=== PATIENT | female | born 1970 | race Caucasian/White ===

== ENCOUNTER → 2022-06-01 | Outpatient (CLI) | payer BC | LOC: WCC 09:00 | PROVIDERS: ATTEND Internal Medicine Infectious Disease | DX: S31.829A Unspecified open wound of left buttock, initial encounter (principal); S71.002A Unspecified open wound, left hip, initial encounter; C50.919 Malignant neoplasm of unspecified site of unspecified female breast; C73 Malignant neoplasm of thyroid gland; L08.89 Other specified local infections of the skin and subcutaneous tissue; S70.222A Blister (nonthermal), left hip, initial encounter; R23.9 Unspecified skin changes; M32.10 Systemic lupus erythematosus, organ or system involvement unspecified; R00.0 Tachycardia, unspecified; E03.8 Other specified hypothyroidism; F31.9 Bipolar disorder, unspecified ==

== ENCOUNTER → 2022-06-08 | Outpatient (CLI) | payer BC | LOC: WCC 10:24 | PROVIDERS: ATTEND Internal Medicine Infectious Disease | DX: S31.829A Unspecified open wound of left buttock, initial encounter (principal); L08.89 Other specified local infections of the skin and subcutaneous tissue; S70.222A Blister (nonthermal), left hip, initial encounter; R23.9 Unspecified skin changes; R00.0 Tachycardia, unspecified; M32.10 Systemic lupus erythematosus, organ or system involvement unspecified; C50.919 Malignant neoplasm of unspecified site of unspecified female breast; C73 Malignant neoplasm of thyroid gland; E03.8 Other specified hypothyroidism; F31.9 Bipolar disorder, unspecified ==

== ENCOUNTER → 2022-06-15 | Outpatient (CLI) | payer BC | LOC: WCC 11:37 | PROVIDERS: ATTEND Internal Medicine Infectious Disease | DX: S31.829A Unspecified open wound of left buttock, initial encounter (principal); S71.002A Unspecified open wound, left hip, initial encounter; L08.89 Other specified local infections of the skin and subcutaneous tissue; S70.222A Blister (nonthermal), left hip, initial encounter; R23.9 Unspecified skin changes; C50.919 Malignant neoplasm of unspecified site of unspecified female breast; C73 Malignant neoplasm of thyroid gland; R00.0 Tachycardia, unspecified; M32.10 Systemic lupus erythematosus, organ or system involvement unspecified; E03.8 Other specified hypothyroidism; F31.9 Bipolar disorder, unspecified ==

== ENCOUNTER → 2022-06-19 | Outpatient (CLI) | payer BC | LOC: WCC 14:30 | PROVIDERS: ATTEND Internal Medicine Infectious Disease | DX: S71.002A Unspecified open wound, left hip, initial encounter (principal); S31.829A Unspecified open wound of left buttock, initial encounter; L08.9 Local infection of the skin and subcutaneous tissue, unspecified; S70.222A Blister (nonthermal), left hip, initial encounter; R23.9 Unspecified skin changes; C50.919 Malignant neoplasm of unspecified site of unspecified female breast; C73 Malignant neoplasm of thyroid gland; R00.0 Tachycardia, unspecified; M32.10 Systemic lupus erythematosus, organ or system involvement unspecified; F31.9 Bipolar disorder, unspecified; E03.8 Other specified hypothyroidism ==

== ENCOUNTER → 2022-06-25 | Outpatient (CLI) | payer BC ==
[~2022-06-25] MED LIST: CLONAZEPAM1 MG PO; LAMICTAL100 MG PO; LINZESS290 MCG; LUNESTA3 MG; MIRAPEX1 MG PO; NUCYNTA75 MG; SEROQUEL100 MG PO; SYNTHROID125 MCG PO
== END ==
LOC: WCC 10:37
PROVIDERS: ATTEND Plastic Surgery
DX: S31.829A Unspecified open wound of left buttock, initial encounter (principal); S71.002A Unspecified open wound, left hip, initial encounter; C50.919 Malignant neoplasm of unspecified site of unspecified female breast; C73 Malignant neoplasm of thyroid gland; L08.89 Other specified local infections of the skin and subcutaneous tissue; S70.222A Blister (nonthermal), left hip, initial encounter; R23.9 Unspecified skin changes; R00.0 Tachycardia, unspecified; M32.10 Systemic lupus erythematosus, organ or system involvement unspecified; E03.8 Other specified hypothyroidism; F31.9 Bipolar disorder, unspecified

== ENCOUNTER → 2022-06-28 | Day surgery (SDC) | payer BC ==
[2022-06-26 16:28] LABS: BASOPHILS % 0.3 % (0.0-1.0); EOSINOPHILS # (AUTO) 0.1 (0.0-0.4); EOSINOPHILS % 1.5 % (0.0-6.0); HEMATOCRIT 41.5 % (34.2-44.1); HEMOGLOBIN 13.6 g/dL (12.0-16.0); LYMPHOCYTES # (AUTO) 1.6 (1.0-3.2); LYMPHOCYTES % 26.1 % (18.0-39.1); MEAN CORPUSCULAR HEMOGLOBIN 28.2 pg (28-32); MEAN CORPUSCULAR HGB CONC 32.8 g/dL (31-35); MEAN CORPUSCULAR VOLUME 85.9 fL (81-99); MONOCYTES # (AUTO) 0.5 (0.2-0.8); MONOCYTES % 8.2 % (4.4-11.3); NEUTROPHILS % 63.7 % (38.7-80.0); PLATELET COUNT 351 x10e3/uL (140-360); RED BLOOD COUNT 4.83 x10e6/uL (3.6-5.1); RED CELL DISTRIBUTION WIDTH 12.9 % (11.7-14.4)
[~2022-06-28] MED LIST changes: +DEXAMETHASONE SOD PHOS INJ 4 MG/ML SDV ONE; +FENTANYL CITRATE/PF 100MCG/2 ML INJ ONE; +HEPARIN 500 UNITS/5ML MDV INJ ONE; +HYDROMORPHONE 1MG/1ML INJ ONE; +KETOROLAC TROMETHAMINE 30 MG/ML VIAL ONE; +LIDOCAINE 1% W/EPINEPHRINE 20 ML VIAL ONE; +LIDOCAINE HCL 2% LOCAL INJ 5 ML SDV VIAL INJ ONE; +METOCLOPRAMIDE HCL 10 MG/2ML VIAL ONE; +MIDAZOLAM HCL 2 MG/2 ML VIAL ONE; +ONDANSETRON HCL INJ 2MG/ML 2ML 2 MG/ML VIAL ONE; +POVIDONE IODINE 0.05% 0.05 % ML PO ONE; +PROPOFOL IV EMULSION 10 MG/ML 20 ML VIAL ONE; +SEVOFLURANE INHAL SOLN 250 ML PEN BTL ONE
[2022-06-28 08:00] VITALS: BP 144/93
== END | disposition home or self-care (01) ==
LOC: OR 05:53
PROVIDERS: ATTEND Plastic Surgery
DX: T24.312A Burn of third degree of left thigh, initial encounter (principal); S71.102A Unspecified open wound, left thigh, initial encounter; G47.33 Obstructive sleep apnea (adult) (pediatric); E03.9 Hypothyroidism, unspecified; M06.9 Rheumatoid arthritis, unspecified; M19.90 Unspecified osteoarthritis, unspecified site; M54.9 Dorsalgia, unspecified; M54.2 Cervicalgia; K44.9 Diaphragmatic hernia without obstruction or gangrene; K57.90 Diverticulosis of intestine, part unspecified, without perforation or abscess without bleeding; N20.0 Calculus of kidney; F31.9 Bipolar disorder, unspecified; F41.9 Anxiety disorder, unspecified; X58.XXXA Exposure to other specified factors, initial encounter; Z88.6 Allergy status to analgesic agent; Z88.1 Allergy status to other antibiotic agents; Z88.0 Allergy status to penicillin; Z88.2 Allergy status to sulfonamides; Z88.8 Allergy status to other drugs, medicaments and biological substances; Z01.812 Encounter for preprocedural laboratory examination; Z20.822 Contact with and (suspected) exposure to COVID-19; Z79.899 Other long term (current) drug therapy
CPT/HCPCS: 0223U; 11043; 11046 ×3; 36415 ×2; 85025; 97606; 99251; J1100; J1170; J1885; J2001; J2250; J2405; J2704; J3010; J2765

== ENCOUNTER → 2022-07-03 | Outpatient (CLI) | payer BC ==
[~2022-07-03] MED LIST changes: -DEXAMETHASONE SOD PHOS INJ 4 MG/ML SDV ONE; -FENTANYL CITRATE/PF 100MCG/2 ML INJ ONE; -HEPARIN 500 UNITS/5ML MDV INJ ONE; -HYDROMORPHONE 1MG/1ML INJ ONE; -KETOROLAC TROMETHAMINE 30 MG/ML VIAL ONE; -LIDOCAINE 1% W/EPINEPHRINE 20 ML VIAL ONE; -LIDOCAINE HCL 2% LOCAL INJ 5 ML SDV VIAL INJ ONE; -METOCLOPRAMIDE HCL 10 MG/2ML VIAL ONE; -MIDAZOLAM HCL 2 MG/2 ML VIAL ONE; -ONDANSETRON HCL INJ 2MG/ML 2ML 2 MG/ML VIAL ONE; -POVIDONE IODINE 0.05% 0.05 % ML PO ONE; -PROPOFOL IV EMULSION 10 MG/ML 20 ML VIAL ONE; -SEVOFLURANE INHAL SOLN 250 ML PEN BTL ONE
== END ==
LOC: WCC 15:10
PROVIDERS: ATTEND Internal Medicine Infectious Disease
DX: S71.002A Unspecified open wound, left hip, initial encounter (principal); S31.829A Unspecified open wound of left buttock, initial encounter; L08.9 Local infection of the skin and subcutaneous tissue, unspecified; S70.222A Blister (nonthermal), left hip, initial encounter; R60.0 Localized edema; R23.9 Unspecified skin changes; C50.919 Malignant neoplasm of unspecified site of unspecified female breast; C73 Malignant neoplasm of thyroid gland; M32.10 Systemic lupus erythematosus, organ or system involvement unspecified; E03.8 Other specified hypothyroidism; F31.9 Bipolar disorder, unspecified

== ENCOUNTER → 2022-07-06 | Outpatient (CLI) | payer BC ==
[~2022-07-06] MED LIST changes: +TRINATAL RX 11 EACH
== END ==
LOC: WCC 14:57
PROVIDERS: ATTEND Internal Medicine Infectious Disease
DX: S71.002A Unspecified open wound, left hip, initial encounter (principal); S31.829A Unspecified open wound of left buttock, initial encounter; L08.9 Local infection of the skin and subcutaneous tissue, unspecified; S70.222A Blister (nonthermal), left hip, initial encounter; R23.9 Unspecified skin changes; C73 Malignant neoplasm of thyroid gland; C50.919 Malignant neoplasm of unspecified site of unspecified female breast; M32.10 Systemic lupus erythematosus, organ or system involvement unspecified; R00.0 Tachycardia, unspecified; E03.8 Other specified hypothyroidism; F31.9 Bipolar disorder, unspecified

== ENCOUNTER → 2022-07-09 | Outpatient (CLI) | payer BC | LOC: WCC 13:42 | PROVIDERS: ATTEND Internal Medicine Infectious Disease | DX: S31.829A Unspecified open wound of left buttock, initial encounter (principal); S71.002A Unspecified open wound, left hip, initial encounter; R23.9 Unspecified skin changes; S70.222A Blister (nonthermal), left hip, initial encounter; L08.89 Other specified local infections of the skin and subcutaneous tissue; C50.919 Malignant neoplasm of unspecified site of unspecified female breast; C73 Malignant neoplasm of thyroid gland; R00.0 Tachycardia, unspecified; M32.10 Systemic lupus erythematosus, organ or system involvement unspecified; E03.8 Other specified hypothyroidism; F31.9 Bipolar disorder, unspecified ==

== ENCOUNTER → 2022-07-12 | Day surgery (SDC) | payer BC ==
[~2022-07-12] MED LIST changes: +CLINDAMYCIN 600MG / 50ML 50 ML IV ONE; +DEXAMETHASONE SOD PHOS INJ 4 MG/ML SDV ONE; +FENTANYL CITRATE/PF 100MCG/2 ML INJ ONE; +HEPARIN 500 UNITS/5ML MDV INJ ONE; +HYDROCODONE/APAP 10MG-325MG TAB ONE; +HYDROMORPHONE 1MG/1ML INJ ONE; +LIDOCAINE HCL 2% LOCAL INJ 5 ML SDV VIAL INJ ONE; +MIDAZOLAM HCL 2 MG/2 ML VIAL ONE; +ONDANSETRON HCL INJ 2MG/ML 2ML 2 MG/ML VIAL ONE; +POVIDONE IODINE 0.05% 0.05 % ML PO ONE; +PROPOFOL IV EMULSION 10 MG/ML 20 ML VIAL ONE; +SEVOFLURANE INHAL SOLN 250 ML PEN BTL ONE
[2022-07-12 09:30] VITALS: BP 132/72
== END | disposition home or self-care (01) ==
LOC: OR 05:30
PROVIDERS: ATTEND Plastic Surgery
DX: T24.312A Burn of third degree of left thigh, initial encounter (principal); G47.33 Obstructive sleep apnea (adult) (pediatric); E03.9 Hypothyroidism, unspecified; M32.9 Systemic lupus erythematosus, unspecified; K85.90 Acute pancreatitis without necrosis or infection, unspecified; N20.0 Calculus of kidney; F41.9 Anxiety disorder, unspecified; F31.9 Bipolar disorder, unspecified; X08.8XXA Exposure to other specified smoke, fire and flames, initial encounter; Z88.6 Allergy status to analgesic agent; Z88.1 Allergy status to other antibiotic agents; Z88.2 Allergy status to sulfonamides; Z88.0 Allergy status to penicillin; Z01.812 Encounter for preprocedural laboratory examination; Z01.818 Encounter for other preprocedural examination; Z20.822 Contact with and (suspected) exposure to COVID-19; Z79.899 Other long term (current) drug therapy; Z85.850 Personal history of malignant neoplasm of thyroid; Z87.01 Personal history of pneumonia (recurrent); Z86.711 Personal history of pulmonary embolism
CPT/HCPCS: 0223U; 15002; 15100; 36415; 71046; J1100; J1170; J2001; J2250; J2405; J2704; J3010

== ENCOUNTER → 2022-07-16 | Outpatient (CLI) | payer BC ==
[~2022-07-16] MED LIST changes: -CLINDAMYCIN 600MG / 50ML 50 ML IV ONE; -DEXAMETHASONE SOD PHOS INJ 4 MG/ML SDV ONE; -FENTANYL CITRATE/PF 100MCG/2 ML INJ ONE; -HEPARIN 500 UNITS/5ML MDV INJ ONE; -HYDROCODONE/APAP 10MG-325MG TAB ONE; -HYDROMORPHONE 1MG/1ML INJ ONE; -LIDOCAINE HCL 2% LOCAL INJ 5 ML SDV VIAL INJ ONE; -MIDAZOLAM HCL 2 MG/2 ML VIAL ONE; -ONDANSETRON HCL INJ 2MG/ML 2ML 2 MG/ML VIAL ONE; -POVIDONE IODINE 0.05% 0.05 % ML PO ONE; -PROPOFOL IV EMULSION 10 MG/ML 20 ML VIAL ONE; -SEVOFLURANE INHAL SOLN 250 ML PEN BTL ONE
== END ==
LOC: WCC 14:38
PROVIDERS: ATTEND Internal Medicine Infectious Disease
DX: T81.89XA Other complications of procedures, not elsewhere classified, initial encounter (principal); T86.828 Other complications of skin graft (allograft) (autograft); S71.002A Unspecified open wound, left hip, initial encounter; S31.829A Unspecified open wound of left buttock, initial encounter; L08.9 Local infection of the skin and subcutaneous tissue, unspecified; S70.222A Blister (nonthermal), left hip, initial encounter; R23.9 Unspecified skin changes; C73 Malignant neoplasm of thyroid gland; C50.919 Malignant neoplasm of unspecified site of unspecified female breast; Y83.8 Other surgical procedures as the cause of abnormal reaction of the patient, or of later complication, without mention of misadventure at the time of the procedure; R00.0 Tachycardia, unspecified; M32.10 Systemic lupus erythematosus, organ or system involvement unspecified; E03.8 Other specified hypothyroidism; F31.9 Bipolar disorder, unspecified
CPT/HCPCS: 97605; 99251

== ENCOUNTER → 2022-07-23 | Outpatient (CLI) | payer BC | LOC: WCC 12:58 | PROVIDERS: ATTEND Internal Medicine Infectious Disease | DX: T81.89XA Other complications of procedures, not elsewhere classified, initial encounter (principal); T86.828 Other complications of skin graft (allograft) (autograft); Y83.8 Other surgical procedures as the cause of abnormal reaction of the patient, or of later complication, without mention of misadventure at the time of the procedure; S31.829A Unspecified open wound of left buttock, initial encounter; R23.9 Unspecified skin changes; S70.222A Blister (nonthermal), left hip, initial encounter; L08.89 Other specified local infections of the skin and subcutaneous tissue; C50.919 Malignant neoplasm of unspecified site of unspecified female breast; C73 Malignant neoplasm of thyroid gland; M32.10 Systemic lupus erythematosus, organ or system involvement unspecified; R00.0 Tachycardia, unspecified; E03.8 Other specified hypothyroidism; F31.9 Bipolar disorder, unspecified ==